=== PATIENT | male | born 1990 | race African-American/Black ===

== ENCOUNTER 2024-06-22 01:19 | Emergency (ER) | payer SELFPAY ==
[2024-06-22] MEDS ORDERED: Albuterol 2.5 MG (3 mL) NEB ONE ×2 (01:43→02:13)
[2024-06-22] MEDS ORDERED: Ipratropium Bromide 2.5 ml Neb ONE (01:44)
[2024-06-22] MEDS ORDERED: predniSONE 20 MG TAB ONE (02:37)
== END 2024-06-22 03:30 | disposition home or self-care (01) ==
LOC: ERS 01:19
DX: J18.9 Pneumonia, unspecified organism (principal); J45.901 Unspecified asthma with (acute) exacerbation
CPT/HCPCS: 71045; J7512; J7611; J7644